=== PATIENT | female | born 1955 | race Caucasian/White ===

== ENCOUNTER 2016-07-29 10:37 | Emergency (ER) | payer BC, SELFPAY ==
[2016-07-29 10:58] LABS: #Basophils 0.1 thou/uL (0.0-0.2); #Eosinphils 0.5 thou/uL (0.0-0.7); #Lymphocytes 1.8 thou/uL (1.20-3.40); #Monocytes 0.4 thou/uL (0.11-0.59); #Neutrophils 6.1 thou/uL (1.40-6.50); %Basophils 0.9 % (0.0-1.0); %Eosinophils 5.3 % (0.0-10.0); %Lymphocytes 20.1 % (21.0-51.0); %Monocytes 4.5 % (0.0-10.0); %Neutrophils 69.2 % (42.0-75.0); Hemoglobin 13.5 g/dL (12.0-16.0); Mean Corpuscular HGB CONC 32.1 g/dL (32.0-36.0); Mean Corpuscular Hemoglobin 31.2 pg (27.0-31.0); Mean Corpuscular Volume 97.1 fl (81.0-99.0); Mean Platelet Volume 7.5 fL (7.4-10.4); Platelet Count 158 thou/uL (130-400); RBC Distribution Width 11.7 % (11.5-14.5); Red Blood Cell (RBC) Count 4.33 mill/uL (4.20-5.40); White Blood Cell (WBC) Count 8.8 thou/uL (4.8-10.8)
[2016-07-29] MEDS ORDERED: Ibuprofen 800 MG TAB ONE (11:07)
[2016-07-29] MEDS ORDERED: HYDROcodone/Acetaminophen 10/325 mg Tablet ONE (11:07)
[2016-07-29 11:09] LABS: Anion Gap 11 mmol/L (10-20); BUN (Urea Nitrogen) 13 mg/dL (9.8-20.1); Calc. Creatinine Clearance 0 mL/min (70-130); Calcium 9.5 mg/dL (7.8-10.44); Carbon Dioxide 30 mmol/L (23-31); Chloride 100 mmol/L (98-107); Estimated GFR-MDRD 65; Glucose 239 mg/dL (80-115); Sodium 136 mmol/L (136-145); Uric Acid 3.8 mg/dL (2.6-6.0)
[2016-07-29] MEDS ORDERED: predniSONE 20 MG TAB ONE (11:31)
--- NOTE | 2016-07-29 21:12 | RAD ---
LEFT KNEE FOUR VIEWS 07/29/2016 No fracture or dislocation was seen; however, there is a large joint effusion. Meniscal calcificati ons are present both medially and lateral. The joint space is symmetrical. The articular surfaces are smooth. IMPRESSION: Meniscal calcifications. Large joint effusion. Code T. POS: HOME
== END 2016-07-29 11:37 | disposition home or self-care (01) ==
LOC: BURERS 10:37
DX: M25.462 Effusion, left knee (principal); R73.9 Hyperglycemia, unspecified; F41.9 Anxiety disorder, unspecified
CPT/HCPCS: 36415; 80048; 84550; 85025; 99283; J7506

== ENCOUNTER 2016-09-09 06:45 | Emergency (ER) | payer BC, SELFPAY ==
[2016-09-09] MEDS ORDERED: Lorazepam 2 MG/ML VIAL ONE (06:55)
[2016-09-09 07:07] LABS: #Basophils 0.1 thou/uL (0.0-0.2); #Eosinphils 0.1 thou/uL (0.0-0.7); #Lymphocytes 2.5 thou/uL (1.20-3.40); #Monocytes 0.8 thou/uL (0.11-0.59); #Neutrophils 9.3 thou/uL (1.40-6.50); %Basophils 0.8 % (0.0-1.0); %Eosinophils 0.4 % (0.0-10.0); %Lymphocytes 19.9 % (21.0-51.0); %Monocytes 6.4 % (0.0-10.0); %Neutrophils 72.4 % (42.0-75.0); Mean Corpuscular HGB CONC 33.7 g/dL (32.0-36.0); Mean Corpuscular Hemoglobin 32.4 pg (27.0-31.0); Mean Corpuscular Volume 96.1 fl (81.0-99.0); Platelet Count 201 thou/uL (130-400); RBC Distribution Width 12.3 % (11.5-14.5); Red Blood Cell (RBC) Count 4.64 mill/uL (4.20-5.40); White Blood Cell (WBC) Count 12.8 thou/uL (4.8-10.8)
[2016-09-09 07:10] LABS: INR-International Normal Ratio 1.3; PTT 28.7 SEC (22.9-36.1); Prothrombin Time 16.1 SEC (12.0-14.7)
[2016-09-09 07:17] LABS: ALT (SGPT) 74 U/L (8-55); AST (SGOT) 90 U/L (5-34); Albumin 4.1 g/dL (3.4-4.8); Alkaline Phosphatase 136 U/L (40-150); Anion Gap 12 mmol/L (10-20); Bilirubin, Total 1.3 mg/dL (0.2-1.2); Calc. Creatinine Clearance 0 mL/min (70-130); Calcium 9.1 mg/dL (7.8-10.44); Carbon Dioxide 28 mmol/L (23-31); Chloride 97 mmol/L (98-107); Estimated GFR-MDRD 64; Globulin 4.7 g/dL (2.4-3.5); Glucose 258 mg/dL (80-115); Potassium 3.5 mmol/L (3.5-5.1); Protein, Total 8.8 g/dL (5.8-8.1); Sodium 133 mmol/L (136-145)
[2016-09-09 07:21] LABS: CKMB 1.9 ng/mL (0-6.6); Troponin I Less than 0.010 ng/mL (< 0.028)
[2016-09-09 07:27] LABS: BUN (Urea Nitrogen) 16 mg/dL (9.8-20.1)
--- NOTE | 2016-09-09 21:09 | RAD ---
PORTABLE CHEST 09/09/16 An AP portable film at 0656 shows the heart to be upper normal in size. There is no vascular congest ion or edema. The lungs are clear. No effusions are seen. The mediastinum appears normal. IMPRESSION: No acute thoracic finding. POS: HOME
== END 2016-09-09 08:17 | disposition home or self-care (01) ==
LOC: BURERS 06:45
DX: F41.9 Anxiety disorder, unspecified (principal); I10 Essential (primary) hypertension; E11.9 Type 2 diabetes mellitus without complications; Z79.52 Long term (current) use of systemic steroids; Z79.899 Other long term (current) drug therapy
CPT/HCPCS: 36416; 71010; 80053; 82553; 84443; 84484; 85025; 85610; 85730; 93005; 94760; 96374; J2060

== ENCOUNTER 2018-08-03 08:27 | Outpatient (CLI) | payer MEDICARE ==
--- NOTE | 2018-08-03 17:34 | ULT ---
ABDOMINAL ULTRASOUND 08/03/18 Comparison is made with a CT of the abdomen and pelvis dated 07/15/15. The liver is enlarged measuring 18.1 cm in oblique sagittal length and probably has fatty infiltrate as it is somewhat echo dense. Portal venous flow is towards the liver. The spleen is upper normal in size at 13 cm in length. No pancreatic abnormality was seen. The gallbladder is rather large, measuring 10 cm in length. No stones were seen within it, nor was th ere any wall thickening. The common bile duct was a normal 5 mm wide. The right kidney was 12.2 cm long and contains a 3.2 cm cyst. This was seen on the CT in 2016. The le ft kidney appears normal and measures 11.1 cm in length. An abdominal aortic aneurysm is present which has been seen on CT. It starts below the level of the r enal arteries and is about 8.8 cm long, not extending beyond the bifurcation. Cross-sectional measure ment on this ultrasound today was 3.8 x 5.2 cm. On the 2016 CT it was measured closer to the 3.8 cm f igure. I would recommend a followup CT to better display it. IMPRESSION: 1. Hepatomegaly with fatty infiltration. No evidence of portal hypertension, mass or dilated rishi ts. Spleen is upper normal in size. 2. Large gallbladder with no internal abnormality seen. 3. Abdominal aortic aneurysm. The cross-sectional measurements were 3.8 x 5.2 cm suggesting it m ay have enlarged since the prior CT. A repeat CT is recommended for better evaluation. 4. 3 cm right renal cyst, stable. Code T POS: HOME
== END 2018-08-03 08:28 | disposition home or self-care (01) ==
LOC: BURULT 08:27
PROVIDERS: ATTEND Internal Medicine Gastroenterology
DX: B18.2 Chronic viral hepatitis C (principal); R16.0 Hepatomegaly, not elsewhere classified; K59.00 Constipation, unspecified; R74.0 Nonspecific elevation of levels of transaminase and lactic acid dehydrogenase [LDH]; R94.5 Abnormal results of liver function studies; K76.0 Fatty (change of) liver, not elsewhere classified; I71.4 Abdominal aortic aneurysm, without rupture; N28.1 Cyst of kidney, acquired; Z86.010 Personal history of colon polyps
CPT/HCPCS: 76700

== ENCOUNTER 2018-08-24 08:04 | Emergency (ER) | payer MEDICARE ==
[2018-08-24] MEDS ORDERED: Morphine 4 MG/ML VIAL ONE (08:33)
[2018-08-24 08:42] LABS: Hemoglobin 13.8 g/dL (12.0-16.0); Mean Corpuscular HGB CONC 32.1 g/dL (32.0-36.0); Mean Corpuscular Hemoglobin 31.8 pg (27.0-31.0); Mean Platelet Volume 8.6 fL (7.4-10.4); Platelet Count 111 thou/uL (130-400); RBC Distribution Width 12.6 % (11.5-14.5); Red Blood Cell (RBC) Count 4.34 mill/uL (4.20-5.40); White Blood Cell (WBC) Count 5.2 thou/uL (4.8-10.8)
[2018-08-24 09:00] LABS: ALT (SGPT) 40 U/L (8-55); AST (SGOT) 76 U/L (5-34); Albumin 3.7 g/dL (3.4-4.8); Alkaline Phosphatase 149 U/L (40-150); Anion Gap 13 mmol/L (10-20); BUN (Urea Nitrogen) 12 mg/dL (9.8-20.1); Bilirubin, Total 2.3 mg/dL (0.2-1.2); Calc. Creatinine Clearance 0 mL/min (70-130); Calcium 9.5 mg/dL (7.8-10.44); Carbon Dioxide 28 mmol/L (23-31); Chloride 103 mmol/L (98-107); Estimated GFR-MDRD 67; Globulin 4.1 g/dL (2.4-3.5); Glucose 143 mg/dL (80-115); Lipase 125 U/L (8-78); Potassium 3.8 mmol/L (3.5-5.1); Protein, Total 7.8 g/dL (6.0-8.3); Sodium 140 mmol/L (136-145)
[2018-08-24 09:02] LABS: Eosinophils 3 % (0-10); Lymphocytes 15 % (21-51); MDiff Complete? YES; Monocytes 10 % (0-10); Neutrophil 70 % (42-75); Platelet Morphology Comment Appears Decreased; RBC Morphology Normal
[2018-08-24 10:08] LABS: Clarity Clear (Clear); Leukocyte Negative (Negative); pH, Urine 6.5 (5.0-9.0)
[2018-08-24 10:09] LABS: Bilirubin Moderate (Negative); Blood, Urine Moderate (Negative); Glucose, Urine (Dipstick) Negative (Negative); Nitrite Negative (Negative); Protein, Urine (Dipstick) 30 mg/dL (Neg-Trace)
[2018-08-24 10:11] LABS: Squamous Epithelial 0-3 HPF (0-3)
[2018-08-24 10:12] LABS: Bacteria/HPF Rare-Few HPF (None Seen); Other Microscopic Description MODERATE MUCOUS
--- NOTE | 2018-08-24 17:44 | CT ---
CT ABDOMEN AND PELVIS WITH CONTRAST: 08/24/2018 COMPARISON: Abdominal ultrasound from 08/03/2018. CT abdomen and pelvis from 07/15/2015. FINDINGS: ABDOMEN: The lung bases are clear. The liver, spleen, pancreas, and adrenal glands are unremarkable . The gallbladder is rather large, measuring over 11 cm in length. The wall is not thick, and no st ones are seen. The kidneys show no mass or hydronephrosis. There is a 3.1 cm cyst in the right kidn ey. At least 1 and possibly 2 tiny, nonobstructing calculi are seen in the left kidney. No ureteral calculi are seen. An infrarenal abdominal aortic aneurysm is again noted, starting just below the renal arteries and ex tending to the bifurcation. Maximal AP diameter today is measured at 4.2 cm, and transverse diameter is 4.3 cm. This compares fairly closely to 3.9 cm, measured back in 2016. There is no sign of aort ic leak. The bowel shows no distention or wall thickening. There is no sign of diverticulitis at the moment. No free air or free fluid is seen. PELVIS: No pelvic masses, fluid collections, or other acute finding. IMPRESSION: 1. Infrarenal abdominal aortic aneurysm, 4.3 cm in maximum diameter, compared to 3.9 cm in 2016. 2. No evidence of diverticulitis today. 3. Large gallbladder without any other adverse findings. 4. Nonobstructing left renal calculi. POS: HOME
== END 2018-08-24 10:44 | disposition home or self-care (01) ==
LOC: BURERS 08:04
DX: R10.12 Left upper quadrant pain (principal); R10.32 Left lower quadrant pain; E11.9 Type 2 diabetes mellitus without complications; I10 Essential (primary) hypertension; F41.9 Anxiety disorder, unspecified; Z79.899 Other long term (current) drug therapy
CPT/HCPCS: 51701; 74177; 80053; 81003; 81015; 83605; 83690; 84484; 85025; 93005; 96374; A4353; J2270

== ENCOUNTER 2019-03-09 10:17 | Outpatient (CLI) | payer MEDICARE ==
--- NOTE | 2019-03-09 14:17 | RAD ---
LEFT ANKLE 3 VIEWS: DATE: 03/09/2019. FINDINGS: No fracture was seen. A calcaneal spur is present. The articular surfaces of the ankle joint are no rmal in appearance. IMPRESSION: No acute findings. POS: [facility]
--- NOTE | 2019-03-13 07:15 | RAD ---
LEFT KNEE 2 VIEWS: Date: 03/09/19 Note: This study was not presented for reading until 03/13/19. Two views show a total knee arthroplasty in good position and normal postoperative appearance. There is no sign of loosening or infection of the hardware. No fracture or joint effusion seen. IMPRESSION: No significant findings. POS: HOME
== END 2019-03-09 10:18 | disposition home or self-care (01) ==
LOC: BURRAD 10:17
PROVIDERS: ATTEND Nurse Practitioner Family
DX: M25.562 Pain in left knee (principal); M25.572 Pain in left ankle and joints of left foot